=== PATIENT | female | born 1965 | race Caucasian/White ===

== ENCOUNTER 2018-05-02 07:43 | Emergency (ER) | payer OTHER ==
[2018-05-02 08:15] VITALS: BP 100/60
--- NOTE | 2018-05-02 08:24 | UC ---
Lower Extremity/Ankle HPI - HPI Summary HPI Summary: 53 yo female presents with left calf pain since yesterday morning. She tells me that yesterday morning she woke up with left calf pain without known injury. Hurts when walking or with dorsiflexion/plantarflexion. She has not taken anything for her discomfort. Has not been RICEing the area. Denies recent illness, SOB, cough, recent travel, or cancer. She does smoke daily. - History of Current Complaint Chief Complaint: UCLowerExtremity Stated Complaint: MUSCLE STRAIN Time Seen by Provider: 05/02/18 08:24 Hx Obtained From: Patient Hx Last Menstrual Period: 02/20/13 Onset/Duration: Sudden Onset Severity Initially: Mild Severity Currently: Mild Pain Intensity: 4 Pain Scale Used: 0-10 Numeric Aggravating Factor(s): Standing, Ambulation Able to Bear Weight: Yes - Allergies/Home Medications Allergies/Adverse Reactions: Allergies Allergy/AdvReac Type Severity Reaction Status Date / Time No Known Allergies Allergy Verified 05/02/18 08:08 Home Medications: Home Medications Cbd Oil 1 applic TOPICAL WEEKLY PRN 05/02/18 [History Confirmed 05/02/18] PMH/Surg Hx/FS Hx/Imm Hx - Additional Past Medical History Additional PMH: None - Surgical History Surgical History: Yes Surgery Procedure, Year, and Place: Right knee meniscus repair 2009. Tonsillectomy - Family History Known Family History: Positive: None - Social History Occupation: Employed Full-time Lives: With Family Alcohol Use: Occasionally Substance Use Type: None Smoking Status (MU): Heavy Every Day Tobacco Smoker Amount Used/How Often: 10 cig/day Household Exposure Type: Cigarettes Review of Systems Constitutional: Negative Skin: Negative Eyes: Negative Respiratory: Negative Cardiovascular: Negative Gastrointestinal: Negative Neurovascular: Negative Musculoskeletal: Other: - left calf pain Neurological: Negative Psychological: Negative All Other Systems Reviewed And Are Negative: Yes Physical Exam - Summary Physical Exam Summary: GENERAL: NAD. WDWN. No pain distress. SKIN: No rashes, sores, lesions, or open wounds. CHEST: No accessory muscle use. Breathing comfortably and in no distress. CV: Pulses intact PT and DP. Cap refill <2seconds MSK: LEFT CALF: Mild TTP about left calf. Pain increases with dorsiflexion and plantarflexion. No edema or ecchymosis. No varicose/bulging veins. Strength 5/ 5. NEURO: Alert. Sensations intact and symmetric B/L LEs PSYCH: Age appropriate behavior. Triage Information Reviewed: Yes Vital Signs: Initial Vital Signs Temp 98.3 F 05/02/18 08:00 Pulse 81 05/02/18 08:00 Resp 18 05/02/18 08:00 BP 100/60 05/02/18 08:00 Pulse Ox 99 05/02/18 08:00 Vital Signs Reviewed: Yes Lower Extremity Course/Dx - Course Course Of Treatment: Discussed with pt muscle strain vs DVT. She has not taken any OTC medications for her discomfort and has not been resting the leg. I have a low suspicion for DVT at this time. We discussed getting an US of the leg today to r/o DVT, but pt declined and elected to try RICE and ibuprofen - will return or go to ED if her pain persists or if she develops new symptoms such as leg swelling. - Differential Dx/Diagnosis Provider Diagnoses: Left calf pain Discharge - Sign-Out/Discharge Documenting (check all that apply): Patient Departure All imaging exams completed and their final reports reviewed: No Studies - Discharge Plan Condition: Stable Disposition: HOME Patient Education Materials: Muscle Strain (ED) Forms: *Work Release Referrals: Cheikh Torres MD [Primary Care Provider] - Additional Instructions: If you develop a fever, shortness of breath, chest pain, new or worsening symptoms - please call your PCP or go to the ED. 1) May try ibuprofen for your discomfort. Rest and apply ice to your leg 2) If your symptoms persist or worsen - please return or go to the ER for further evaluation - Billing Disposition and Condition Condition: STABLE Disposition: Home - Attestation Statements Provider Attestation: Per institutional requirements, I have reviewed the chart, however, I was not consulted specifically or made aware of this patient by the midlevel provider. I did not personally evaluate, interact with , or disposition this patient.
== END 2018-05-02 08:35 | disposition home or self-care (01) ==
LOC: UCEAST 07:43
CPT/HCPCS: 99201; G0463

== ENCOUNTER 2019-06-21 15:38 | Emergency (ER) | payer OTHER ==
--- NOTE | 2019-06-21 16:15 | UC ---
UC General HPI - HPI Summary HPI Summary: 54-year-old woman comes in with a chief complaint of right flank pain for one month. Patient noticed about a month ago she did not remember having any trauma. Pain is worse with twisting turning bending. It does wrap around sometimes to the right upper lateral abdomen but not into the right upper quadrant. No change in urine or bowels no blood in the stools. She does occasionally get some GERD. In the last 1 day the pain has increased at its worse is 9 out of 10. Right now it's about a 6 out of 10. No rash no fevers no chills. No prior abdominal surgeries. No shortness of breath no respiratory symptoms. - History of Current Complaint Stated Complaint: RT FLANK PAIN Time Seen by Provider: 06/21/19 15:46 Hx Last Menstrual Period: 02/20/13 - Allergy/Home Medications Allergies/Adverse Reactions: Allergies Allergy/AdvReac Type Severity Reaction Status Date / Time No Known Allergies Allergy Verified 06/21/19 16:29 PMH/Surg Hx/FS Hx/Imm Hx Previously Healthy: Yes - Surgical History Surgical History: Yes Surgery Procedure, Year, and Place: Right knee meniscus repair 2009. Tonsillectomy - Family History Known Family History: Positive: None - Social History Alcohol Use: Occasionally Substance Use Type: None Smoking Status (MU): Heavy Every Day Tobacco Smoker Amount Used/How Often: 10 cig/day Household Exposure Type: Cigarettes Review of Systems All Other Systems Reviewed And Are Negative: Yes Constitutional: Positive: Negative Skin: Positive: Negative Eyes: Positive: Negative ENT: Positive: Negative Respiratory: Positive: Negative Cardiovascular: Positive: Negative Gastrointestinal: Positive: Other - SEE HPI Genitourinary: Negative: Dysuria, Hematuria, Frequency, Urgency Motor: Positive: Negative Neurovascular: Positive: Negative Musculoskeletal: Positive: Other: - SEE HPI Neurological: Positive: Negative Psychological: Positive: Negative Is Patient Immunocompromised?: No Physical Exam Triage Information Reviewed: Yes Appearance: Well-Appearing, Well-Nourished, Pain Distress - Mild with range of motion of twisting and turning and bending of her back. Vital Signs Reviewed: Yes Eye Exam: Normal Eyes: Positive: Conjunctiva Clear Neck: Positive: Supple Respiratory: Positive: Lungs clear, Normal breath sounds, No respiratory distress Cardiovascular: Positive: RRR Abdomen Description: Positive: CVA Tenderness (R) - Anterior abdomen is nontender to palpation. When I push on the lateral lower ribs patient reports some increased pain in the posterior flank. No rash., Other: Bowel Sounds: Positive: Present Musculoskeletal: Positive: Strength Intact, ROM Intact Neurological: Positive: Alert, Muscle Tone Normal Psychological: Positive: Age Appropriate Behavior Skin Exam: Normal Course/Dx - Course Course Of Treatment: Property Accountant: Adolfo Luu ([id number]) Rn Nursery: [facility] ([facility]) Report Date: 06/21/2019 16:09:00 Report Status: Final Start of Report Content Patient Name: LORRI OMER Medical Record#: [id number] Ordering Physician: Gage Sierra MD Acct.#: [id number] : Age: 54 Sex: F Location: [facility] Exam Date: 06/21/19 1609 ADM Status: REG ER Order Information: CT ABD/PEL W/O Accession Number: [id number] CPT: 93620 INDICATION: Right flank pain. COMPARISON: There are no relevant prior studies available for comparison. TECHNIQUE: A CT scan of the abdomen and pelvis was performed without intravenous and without oral contrast. Contiguous axial sections were obtained from the lung bases through the symphysis pubis. Images were reconstructed in the coronal and sagittal planes. FINDINGS: LUNG BASES: There is mild dependent bilateral lower lobe subsegmental atelectasis. No pleural effusion is present. LIVER: The liver is normal in size. A hypodensity in the left lobe of liver is too small to characterize but statistically benign. No significant focal abnormality is seen on this noncontrast study. GALLBLADDER: No calcified gallstones are seen. BILE DUCTS: No intra or extrahepatic ductal distention is seen. SPLEEN: The spleen is normal in size without significant focal abnormality. PANCREAS: The pancreas is normal in size. No ductal distention or calcifications are seen. ADRENAL GLANDS : The adrenal glands are normal in size. KIDNEYS: The kidneys are normal in size. No renal calculi or hydronephrosis is seen. AORTA: The atheromatous abdominal aorta is normal in caliber. LYMPH NODES: No significantly enlarged lymph nodes are seen. BOWEL: The stomach, small and large bowel appear nondistended. The appendix appears to be within normal limits. There are scattered diverticula within the colon. There is no evidence for diverticulitis or colitis. PELVIC ORGANS: No bladder wall thickening is seen. The uterus and adnexa are unremarkable by CT PERITONEUM: No free intraperitoneal air or fluid is seen. BONES: No significant focal osseous abnormality is seen. IMPRESSION: 1. NO HYDROURETERONEPHROSIS OR NEPHROLITHIASIS IS IDENTIFIED. 2. THE APPENDIX IS NORMAL. < Electronically signed by Adolfo Luu MD in OV> 06/21/191655 Dictated By: Adolfo Luu MD Dictated Date/Time: 06/21/191649 Transcribed Date/Time: 1649 Copy to: CC:Mahogany León MD; Gage Sierra MD Imaging - [facility] - [facility] [address] [address] ph ([phone]) ph ([phone]) ph ([phone]) ===== End of Report Content I discussed the urine results and the CT results with the patient. CBC CMP lipase are all pending. We discussed different possibilities for cause of the pain. At this time we'll try omeprazole 20 mg twice a day for 2 weeks in case the source of the pain is the stomach. Also can use acetaminophen as directed as needed if helpful the pain. Also can use an [id number] lidocaine patch to be used as directed as needed if helpful with the pain. Recommended the patient calling her primary care doctor tomorrow to arrange follow-up as possible. We also discussed if anything got worse with pain fevers she felt ill blood in her vomiting diarrhea or any other concerns she should go the emergency department for further evaluation and care. - Diagnoses Provider Diagnosis: Right flank pain Discharge ED - Sign-Out/Discharge Documenting (check all that apply): Patient Departure All imaging exams completed and their final reports reviewed: Yes - Discharge Plan Condition: Stable Disposition: HOME Prescriptions: Omeprazole 20 mg PO BID #30 capsule. Patient Education Materials: Flank Pain (ED) Referrals: Mahogany León MD [Primary Care Provider] - Additional Instructions: FOLLOW UP WITH YOUR DOCTOR. CALL TOMORROW, 06/22/19, TO ARRANGE A FOLLOW UP APPOINTMENT. TRY ACETAMINOPHEN DIRECTED NEEDED FOR PAIN. TRY AN OVER THE COUNTER LIDOCAINE PATCH. GO TO THE EMERGENCY DEPARTMENT IF WORSE; PAIN, FEVER, VOMITING, BLOOD IN YOUR VOMITING OR STOOL OR URINE, YOU FEEL LIKE PASSING OUT, YOU FEEL ILL OR ANY QUESTIONS OR CONCERNS. - Billing Disposition and Condition Condition: STABLE Disposition: Home
[2019-06-21 16:28] VITALS: BP 105/67
[2019-06-22 13:32] LABS: Hematocrit 36 % (35-47); Hemoglobin 12.1 g/dL (12.0-16.0); Mean Corpuscular HGB Conc 34 g/dL (31-36); Mean Corpuscular Hemoglobin 31 pg (27-31); Mean Corpuscular Volume 93 fL (80-97); Mean Platelet Volume 9.7 fL (7.4-10.4); Platelet Count 251 10^3/uL (150-450); Red Blood Count 3.87 10^6 /uL (3.70-4.87); Red Cell Distribution Width 14 % (10-15); White Blood Count 8.2 10^3/uL (3.5-10.8)
[2019-06-22 13:48] LABS: Albumin 4.3 g/dL (3.2-5.2); Calcium 9.8 mg/dL (8.6-10.3); Potassium 4.2 mmol/L (3.5-5.0); Total Bilirubin 0.4 mg/dL (0.2-1.0)
[2019-06-22 13:54] LABS: Albumin/Globulin Ratio 2.2 (1-3); BUN/Creatinine Ratio 19.6 (8-20); EGFR African American 136.5 (>60); EGFR Non-African American 112.8 (>60); Total Protein 6.3 g/dL (6.4-8.9)
[2019-06-22 15:09] LABS: ABS Eosinophils 0.1 10^3/ul (0-0.6); ABS Lymphocytes 3.6 10^3/ul (1.0-4.8); ABS Monocytes 0.6 10^3/ul (0-0.8); ABS Neutrophils 3.8 10^3/ul (1.5-7.7); Eosinophil % 1.6 %; Lymphocyte % 44.2 %; Nucleated Red Blood Cells % 0.1
== END 2019-06-21 17:40 | disposition home or self-care (01) ==
LOC: UCEAST 15:38
DX: R10.9 Unspecified abdominal pain (principal); F17.210 Nicotine dependence, cigarettes, uncomplicated
CPT/HCPCS: 36415; 74176; 80053; 81003; 83690; 84702; 85025; 99212; G0463